=== PATIENT | female | born 1995 ===

== ENCOUNTER 2023-09-26 10:46 | Inpatient (IN) | payer OTHER ==
[~2023-09-26] VITALS: Ht 180.3 cm; Wt 146.0 kg
[2023-09-26] MEDS ORDERED: SODIUM CHLORIDE 0.9% 1,000 ML IV ONE (11:45)
[2023-09-26 12:13] LABS: BASOPHILS % (AUTO) 0.4 % (0.0-2.0); EOSINOPHILS % (AUTO) 1.5 % (1.0-6.0); HEMATOCRIT 42.9 % (36-46); HEMOGLOBIN 14.2 g/dL (12.0-16.0); LYMPHOCYTES % (AUTO) 7.4 % (22.0-44.0); MEAN CORPUSCULAR HEMOGLOBIN 29.3 pg (26.0-34.0); MEAN CORPUSCULAR VOLUME 89 fL (80-100); MONOCYTES # (AUTO) 0.8 K/uL (0.1-1.0); MONOCYTES % (AUTO) 5.8 % (2.0-9.0); NEUTROPHILS # (AUTO) 11.4 K/uL (1.8-7.7); NEUTROPHILS % (AUTO) 84.9 % (40.0-70.0); PLATELET COUNT (AUTO) 200 K/uL (150-450); RED BLOOD CELL COUNT(AUTO) 4.83 MIL/uL (4.00-5.20); RED CELL DISTRIBUTION WIDTH 13.1 % (11.5-14.5); WHITE BLOOD COUNT (AUTO) 13.4 K/uL (4.5-11.0)
[2023-09-26 12:22] LABS: ANION GAP 14 mmol/L (8-16); CALCIUM, TOTAL 9.1 mg/dL (8.8-10.5); CARBON DIOXIDE 22 mmol/L (22-29); CHLORIDE 104 mmol/L (98-107); CREATININE 0.96 mg/dL (0.60-1.30); GLOMERULAR FILTR. RATE CALC > 60 mL/min (>60); GLUCOSE,RANDOM 108 mg/dL (70-110); POTASSIUM 3.8 mmol/L (3.5-5.1); SODIUM SERUM 140 mmol/L (136-145); UREA NITROGEN, BLOOD 10 mg/dL (7-18)
[2023-09-26 12:26] LABS: ACETAMINOPHEN < 2 mcg/mL (10-30); SALICYLATE 1.5 mg/dL (2.8-20.0)
[2023-09-26 12:28] LABS: ALANINE AMINOTRANSFERASE 22 U/L (12-78); ALBUMIN 3.9 g/dL (3.4-5.0); ALKALINE PHOSPHATASE 60 U/L (46-116); ASPARTATE AMINOTRANSFERASE 15 U/L (15-37); BILIRUBIN,TOTAL 0.5 mg/dL (0.1-1.0); TOTAL PROTEIN, SERUM 7.2 g/dL (6.4-8.2)
[2023-09-26 12:34] LABS: ALCOHOL, BLOOD (SERUM) < 3 mg/dL (0-10)
[2023-09-26 15:18] LABS: COVID AG,FIA SOURCE NASAL SWAB
[2023-09-26 15:37] LABS: PH,URINE DRUG SCREEN 5.5 (5.0-8.0)
[2023-09-26 15:57] LABS: SARS-COV2 (COVID) ANTIGEN,FIA Negative (Negative)
[2023-09-26 16:05] LABS: ALCOHOL, URINE DRUG SCREEN NEGATIVE (NEGATIVE); AMPHET/METH SCREEN,URINE NEGATIVE (NEGATIVE); BARBITURATE SCREEN, URINE NEGATIVE (NEGATIVE); BENZODIAZEPINES SCREEN,URINE NEGATIVE (NEGATIVE); CANNABINOID SCREEN,URINE POSITIVE (NEGATIVE); COCAINE SCREEN,URINE NEGATIVE (NEGATIVE); METHADONE SCREEN, URINE NEGATIVE (NEGATIVE); OPIATE SCREEN,URINE NEGATIVE (NEGATIVE); PHENCYCLIDINE SCREEN,URINE NEGATIVE (NEGATIVE)
[2023-09-26] MEDS ORDERED: HALOPERIDOL 5 MG TABLET PO PRN (20:45)
[2023-09-26] MEDS ORDERED: ZOLPIDEM TARTRATE 10 MG TABLET PO PRN (20:45)
[2023-09-26] MEDS ORDERED: LORazepam 2 MG TABLET PO PRN (20:45)
[2023-09-27 01:48] VITALS: BP 119/77; PULSE 93; RESP 18; TEMP 98; O2SAT 96
[2023-09-27] MEDS ORDERED: ONDANSETRON HCL 4 MG TABLET PO PRN (07:00)
[2023-09-27] MEDS ORDERED: MAGNESIUM HYDROXIDE SUSPENSION 30 ML UDCUP PO PRN (07:00)
[2023-09-27] MEDS ORDERED: PETROLATUM,WHITE 28 GM JELLY TP PRN (07:00)
[2023-09-27] MEDS ORDERED: CloNIDine HCL 0.1 MG TABLET PO PRN (07:00)
[2023-09-27] MEDS ORDERED: DOCUSATE SODIUM 100 MG CAPSULE PO PRN (07:00)
[2023-09-27] MEDS ORDERED: ACETAMINOPHEN 325 MG TABLET PO PRN (07:00)
[2023-09-27] MEDS ORDERED: GuaiFENesin/D-METHORPHAN [SUGAR-FREE] 200-20MG/10 ML SYRUP UDCUP PO PRN (07:00)
[2023-09-27] MEDS ORDERED: IBUPROFEN 400 MG TABLET PO PRN (07:00)
[2023-09-27] MEDS ORDERED: MAG HYDROX/ALUMINUM HYD/SIMETH ES 30 ML SUSPENSION UDCUP PO PRN (07:00)
[2023-09-27] MEDS ORDERED: NICOTINE 14 MG/24 HOUR PATCH TD PRN (07:00)
[2023-09-27] MEDS ORDERED: ALBUTEROL SULFATE HFA 90 MCG/PUFF 8 GM INHALER IH PRN (07:00)
[2023-09-27] MEDS ORDERED: LOPERAMIDE HCL 2 MG CAPSULE PO PRN (07:00)
[2023-09-27 08:31] VITALS: BP 133/79; PULSE 71; RESP 18; TEMP 98; O2SAT 96
[2023-09-27] MEDS ORDERED: ESCITALOPRAM OXALATE 10 MG TABLET PO ONE (13:30)
[2023-09-27 20:24] VITALS: BP 129/78; PULSE 77; RESP 18; TEMP 97.9
[2023-09-28 08:14] LABS: APPEARANCE,URINE HAZY (CLEAR); BILIRUBIN,URINE NEGATIVE (NEGATIVE); COLOR,URINE COLORLESS (YELLOW); GLUCOSE, URINE (UA) NEGATIVE (NEGATIVE); KETONES,URINE NEGATIVE (NEGATIVE); LEUKOCYTE ESTERASE ,URINE NEGATIVE (NEGATIVE); NITRATE,URINE NEGATIVE (NEGATIVE); OCCULT BLOOD,URINE NEGATIVE (NEGATIVE); PH,URINE 6.5 (5.0-8.0); PH,URINE DRUG SCREEN 6.5 (5.0-8.0); PROTEIN,URINE NEGATIVE (NEGATIVE); SPECIFIC GRAVITIY, URINE 1.005 (1.003-1.030); UROBILINOGEN,URINE <=1.0 mg/dL (<=1.0)
[2023-09-28 08:15] VITALS: BP 134/86; PULSE 84; RESP 18; TEMP 97.7; O2SAT 97
[2023-09-28 08:15] LABS: HEMOGLOBIN A1C 4.9 % (3.8-5.6)
[2023-09-28] MEDS: ESCITALOPRAM OXALATE 10 MG TABLET PO SCH (08:18)
[2023-09-28 08:20] LABS: AMPHET/METH SCREEN,URINE NEGATIVE (NEGATIVE); BARBITURATE SCREEN, URINE NEGATIVE (NEGATIVE); BENZODIAZEPINES SCREEN,URINE NEGATIVE (NEGATIVE); CANNABINOID SCREEN,URINE POSITIVE (NEGATIVE); COCAINE SCREEN,URINE NEGATIVE (NEGATIVE); METHADONE SCREEN, URINE NEGATIVE (NEGATIVE); OPIATE SCREEN,URINE NEGATIVE (NEGATIVE); PHENCYCLIDINE SCREEN,URINE NEGATIVE (NEGATIVE)
[2023-09-28 08:25] LABS: CHOL/HDL RATIO 5.4 (3.9-5.7); THYROID STIMULATING HORMONE 1.17 uIU/mL (0.36-3.74)
[2023-09-28 08:32] LABS: ALCOHOL, URINE DRUG SCREEN NEGATIVE (NEGATIVE)
[2023-09-28 21:30] VITALS: BP 141/72; PULSE 71; RESP 18; TEMP 97.4; O2SAT 96
[2023-09-29] MEDS: ESCITALOPRAM OXALATE 10 MG TABLET PO SCH (08:48)
[2023-09-29 09:15] VITALS: BP 131/72; PULSE 82; RESP 17; TEMP 97.7; O2SAT 96
[2023-09-29 21:04] VITALS: BP 121/74; PULSE 66; RESP 19; TEMP 97.7; O2SAT 95
[2023-09-30 08:18] VITALS: BP 151/57; PULSE 79; RESP 19; TEMP 97.7; O2SAT 97
[2023-09-30] MEDS: ESCITALOPRAM OXALATE 10 MG TABLET PO SCH (08:37)
[2023-09-30] MEDS ORDERED: ESCI-8 PO (12:49)
== END 2023-09-30 12:47 | disposition home or self-care (01) | DRG 885 ==
LOC: EMS 10:52 → EDSEX 10:52 → B2S 23:03
PROVIDERS: ADMIT Psychiatry & Neurology Child & Adolescent Psychiatry; ATTEND Psychiatry & Neurology Child & Adolescent Psychiatry
DX: F33.2 Major depressive disorder, recurrent severe without psychotic features (principal); T43.212A Poisoning by selective serotonin and norepinephrine reuptake inhibitors, intentional self-harm, initial encounter; Z68.41 Body mass index [BMI] 40.0-44.9, adult; R45.851 Suicidal ideations; D72.829 Elevated white blood cell count, unspecified; E66.9 Obesity, unspecified; Z20.822 Contact with and (suspected) exposure to COVID-19; G47.00 Insomnia, unspecified; Y92.89 Other specified places as the place of occurrence of the external cause; Z91.012 Allergy to eggs
CPT/HCPCS: 80053; 80061; 80307; 81003; 83036; 84443; 85025; 93005; 99285; G0480; G0481; J7030